=== PATIENT | male | born 1960 | race Caucasian/White ===

== ENCOUNTER 2016-07-25 13:06 | Emergency (ER) | payer BC ==
[~2016-07-25] VITALS: Ht 177.8 cm; Wt 75.2 kg
[~2016-07-25 13:06] MED LIST: FLEXERIL10 MG PO; LIPITOR20 MG PO; MEDROL DOSEPAK4 MG PO; MOTRIN800 MG PO; PERCOCET 5/31 TABLET PO; PRILOSEC OTC20 MG PO; TORADOL10 MG PO; VALIUM2 MG PO; VALIUM5 MG PO
[2016-07-25 13:53] LABS: ADD MIUA? NO; BILIRUBIN NEGATIVE; BLOOD NEGATIVE; COLOR YELLOW ((YELLOW)); GLUCOSE (STRIP) NEGATIVE; KETONES NEGATIVE; LEUKOCYTES NEGATIVE; NITRITE NEGATIVE; PROTEIN (STRIP) NEGATIVE; SPECIFIC GRAVITY 1.012 (1.000-1.030); UROBILINOGEN 0.2 MG/DL (0.2-1.0)
[2016-07-25] MEDS ORDERED: OXYCODONE HCL10 MG PO (14:47)
[2016-07-25] MEDS ORDERED: METHADONE10 MG PO (14:47)
[2016-07-25] MEDS ORDERED: BLOOD PRESSURE PO (15:02)
[2016-07-25 17:18] VITALS: BP 163/102
== END 2016-07-25 17:18 | disposition home or self-care (01) ==
LOC: EME 13:06
PROVIDERS: Physician Assistant
DX: R10.30 Lower abdominal pain, unspecified (principal); F17.200 Nicotine dependence, unspecified, uncomplicated; Z88.8 Allergy status to other drugs, medicaments and biological substances; I10 Essential (primary) hypertension
CPT/HCPCS: 71020; 76870; 81003; 99281; 99284

== ENCOUNTER 2016-10-16 07:07 | Emergency (ER) | payer BC, OTHER ==
[~2016-10-16] VITALS: Ht 172.7 cm; Wt 68.0 kg
[~2016-10-16 07:07] MED LIST changes: +BLOOD PRESSURE PO; +METHADONE10 MG PO; +OXYCODONE HCL10 MG PO
[2016-10-16 09:42] VITALS: BP 142/89
== END 2016-10-16 09:43 | disposition home or self-care (01) ==
LOC: EME 07:07
PROC: 0HQLXZZ Repair Left Lower Leg Skin, External Approach (ICD-10-PCS; principal; 2016-10-16)
DX: S81.812A Laceration without foreign body, left lower leg, initial encounter (principal); Y99.0 Civilian activity done for income or pay; W25.XXXA Contact with sharp glass, initial encounter; F17.200 Nicotine dependence, unspecified, uncomplicated; Z71.6 Tobacco abuse counseling
CPT/HCPCS: 73610; 99281; 99284

== ENCOUNTER 2017-02-27 16:37 | Emergency (ER) | payer BC, OTHER ==
[~2017-02-27] VITALS: Ht 177.8 cm; Wt 61.2 kg
[~2017-02-27 16:37] MED LIST changes: +AMLODIPINE BESY10 MG PO; -BLOOD PRESSURE PO
[2017-02-27 17:46] LABS: HEMATOCRIT 32.6 % (38.0-50.0); MCH 27.6 PG (29.0-34.0); MCHC 32.2 G/DL (30.0-36.0); MCV 85.8 FL (86-99); MEAN PLAT.VOLUME 9.5 uM^3 (9.0-12.4); PLATELET COUNT 340 K/uL (156-360); RBC DIS.WIDTH-CV 14.6 % (11.8-14.6); RBC DIS.WIDTH-SD 45.5 % (39-53)
[2017-02-27 18:00] LABS: CHLORIDE 99 mEq/L (99-109); SODIUM 134 mEq/L (136-147)
[2017-02-27 18:02] LABS: GLUCOSE 91 mg/dL (70-99); POTASSIUM 4.6 mEq/L (3.7-5.4)
[2017-02-27 18:03] LABS: ANION GAP 11 MEQ/L (2-14)
[2017-02-27 18:04] LABS: TOTAL BILIRUBIN 0.6 mg/dL (0.0-1.0)
[2017-02-27 18:06] LABS: ALKALINE PHOSPHATASE 382 IU/L (3-129); GFR ESTIMATE (CALCULATED) 51 mL/min/
[2017-02-27 18:07] LABS: UREA NITROGEN (BUN) 39 mg/dL (9-23)
[2017-02-27 19:50] VITALS: BP 148/92
== END 2017-02-27 19:52 | disposition home or self-care (01) ==
LOC: EME 16:37
PROVIDERS: Emergency Medicine
DX: E87.5 Hyperkalemia (principal); I10 Essential (primary) hypertension; Z87.891 Personal history of nicotine dependence
CPT/HCPCS: 71010; 80053; 85027; 93005; 99281; 99284; J7030

== ENCOUNTER 2017-03-01 12:26 | Inpatient (IN) | payer BC, OTHER ==
[~2017-03-01] VITALS: Ht 177.8 cm; Wt 61.4 kg
[2017-03-01 13:57] LABS: HEMATOCRIT 35.7 % (38.0-50.0); MCH 27.8 PG (29.0-34.0); MCHC 31.7 G/DL (30.0-36.0); MCV 87.9 FL (86-99); MEAN PLAT.VOLUME 10.5 uM^3 (9.0-12.4); PLATELET COUNT 385 K/uL (156-360); RBC DIS.WIDTH-CV 14.7 % (11.8-14.6); RBC DIS.WIDTH-SD 47.1 % (39-53); RED BLOOD COUNT 4.06 M/uL (4.00-5.50); WHITE BLOOD COUNT 8.1 K/uL (4.1-10.2)
[2017-03-01 14:16] LABS: CHLORIDE 98 mEq/L (99-109); POTASSIUM 5.2 mEq/L (3.7-5.4); SODIUM 133 mEq/L (136-147)
[2017-03-01 14:18] LABS: GLUCOSE 81 mg/dL (70-99)
[2017-03-01 14:20] LABS: ANION GAP 10 MEQ/L (2-14)
[2017-03-01 14:21] LABS: TOTAL BILIRUBIN 0.8 mg/dL (0.0-1.0)
[2017-03-01 14:22] LABS: ALKALINE PHOSPHATASE 398 IU/L (3-129); GFR ESTIMATE (CALCULATED) > 59 mL/min/
[2017-03-01 14:23] LABS: UREA NITROGEN (BUN) 25 mg/dL (9-23)
[2017-03-01 14:25] LABS: LIPASE 35 U/L (1.0-51.0)
[2017-03-01 15:43] LABS: ADD MIUA? NO; BILIRUBIN NEGATIVE; BLOOD NEGATIVE; COLOR YELLOW ((YELLOW)); GLUCOSE (STRIP) 50; KETONES NEGATIVE; LEUKOCYTES NEGATIVE; NITRITE NEGATIVE; PROTEIN (STRIP) 30; SPECIFIC GRAVITY 1.014 (1.000-1.030); UCUL ADDED? NO
[2017-03-01 16:56] LABS: INTER. NORMALIZED RATIO 1.1; PROTHROMBIN TIME 12.4 SEC (10.2-12.9)
[2017-03-01 16:59] LABS: PTT 32.7 SEC (25-37)
[2017-03-01] MEDS ORDERED: IBUPROFEN600 MG PO (22:35)
[2017-03-01] MEDS ORDERED: FLONASE16 G1 BOTH NARES (22:35)
[2017-03-01] MEDS ORDERED: NICODERM CQ1 EAC1 TD (22:35)
[2017-03-01 23:44] VITALS: BP 162/97
[2017-03-02 00:49] VITALS: BP 165/97
[2017-03-02 08:00] VITALS: BP 157/92
[2017-03-02 18:16] VITALS: BP 155/93
[2017-03-02 23:32] VITALS: BP 144/85
[2017-03-03 06:55] VITALS: BP 165/90
[2017-03-03 14:18] VITALS: BP 141/81
[2017-03-03 16:35] VITALS: BP 140/88
[2017-03-03 19:29] VITALS: BP 162/90
[2017-03-03 19:46] VITALS: BP 140/90
[2017-03-03 23:47] VITALS: BP 149/91
[2017-03-04 03:35] VITALS: BP 153/92
[2017-03-04 05:36] VITALS: BP 140/88
[2017-03-04 06:34] LABS: INTER. NORMALIZED RATIO 1.2; PROTHROMBIN TIME 14.1 SEC (10.2-12.9)
[2017-03-04 06:36] LABS: PTT 31.9 SEC (25-37)
[2017-03-04 07:10] VITALS: BP 161/93
[2017-03-04 10:15] VITALS: BP 129/84
[2017-03-04 16:19] VITALS: BP 139/82
[2017-03-04 23:26] VITALS: BP 157/85
[2017-03-05 06:51] VITALS: BP 155/94
[2017-03-05 15:16] VITALS: BP 132/79
[2017-03-05 23:35] VITALS: BP 142/82
[2017-03-06 07:45] VITALS: BP 155/89
[2017-03-06] MEDS ORDERED: DOCUSATE SODIU100 MG PO (13:25)
[2017-03-06] MEDS ORDERED: SENNA LAX8.6 MG PO (13:25)
[2017-03-06] MEDS ORDERED: FAMOTIDINE20 MG PO (13:25)
== END 2017-03-06 14:31 | disposition home or self-care (01) | DRG 436 ==
LOC: EME 12:26 → EDOF 20:55 → 5EAST 20:55 → ENRESERV 21:16 → 5EAST 23:22
PROVIDERS: Emergency Medicine; Internal Medicine Pulmonary Disease
PROC: 0FB13ZX Excision of Right Lobe Liver, Percutaneous Approach, Diagnostic (ICD-10-PCS; principal; 2017-03-04)
DX: C22.0 Liver cell carcinoma (principal); C78.02 Secondary malignant neoplasm of left lung; C78.01 Secondary malignant neoplasm of right lung; D63.0 Anemia in neoplastic disease; K72.90 Hepatic failure, unspecified without coma; E87.1 Hypo-osmolality and hyponatremia; R59.0 Localized enlarged lymph nodes; R04.0 Epistaxis; K59.00 Constipation, unspecified; N28.9 Disorder of kidney and ureter, unspecified; B19.20 Unspecified viral hepatitis C without hepatic coma; I10 Essential (primary) hypertension; K21.9 Gastro-esophageal reflux disease without esophagitis; G89.4 Chronic pain syndrome; M19.90 Unspecified osteoarthritis, unspecified site; R63.4 Abnormal weight loss; M47.812 Spondylosis without myelopathy or radiculopathy, cervical region; Z98.1 Arthrodesis status; Z79.891 Long term (current) use of opiate analgesic; Z87.891 Personal history of nicotine dependence; Z80.1 Family history of malignant neoplasm of trachea, bronchus and lung
CPT/HCPCS: 36415; 71010; 71260; 74177; 77012; 80048; 80053; 81003; 81256 90; 82105 90; 83540; 83690; 85025; 85027; 85049; 85610; 85730; 87902 90; 88307; 88313; 88341 TC; 88342 TC; 93005; 99281; 99284; 99285; J1170; J2270; J2405; J3010; J7030; J7042

== ENCOUNTER 2017-03-30 11:58 | Observation (INO) | payer BC, OTHER ==
[~2017-03-30] VITALS: Ht 177.8 cm; Wt 57.2 kg
[~2017-03-30 11:58] MED LIST changes: -AMLODIPINE BESY10 MG PO; +AMLODIPINE BESYL5 MG PO; +DOCUSATE SODIU100 MG PO; +FAMOTIDINE20 MG PO; +FLONASE16 G1 BOTH NARES; +IBUPROFEN600 MG PO; +NICODERM CQ1 EAC1 TD; -OXYCODONE HCL10 MG PO; +OXYCODONE HCL15 MG PO; +SENNA LAX8.6 MG PO
[2017-03-30 13:34] LABS: EOSINOPHIL (%) 0.2 % (0-5); HEMATOCRIT 31.8 % (38.0-50.0); IMMATURE GRANULOCYTE (%) 0.6 % (0.0-0.7); IMMATURE GRANULOCYTE COUNT 0.1 K/uL; INSTRUMENT ABS NEUTROPHIL CT 6.5 K/uL; MCH 26.6 PG (29.0-34.0); MCHC 32.1 G/DL (30.0-36.0); MEAN PLAT.VOLUME 9.2 uM^3 (9.0-12.4); MONOCYTE (%) 5.6 % (3-12); MONOCYTE COUNT 0.5 K/uL (0-0.8); NEUTROPHIL (%) 80.8 % (45-76); NEUTROPHIL COUNT 6.5 K/uL (1.8-6.4); PLATELET COUNT 296 K/uL (156-360); RBC DIS.WIDTH-CV 16.7 % (11.8-14.6); RBC DIS.WIDTH-SD 49.8 % (39-53); RED BLOOD COUNT 3.84 M/uL (4.00-5.50); WHITE BLOOD COUNT 8.1 K/uL (4.1-10.2)
[2017-03-30 13:36] LABS: MCV 82.8 FL (86-99)
[2017-03-30 13:51] LABS: ANION GAP 8 MEQ/L (2-14); CHLORIDE 95 MEQ/L (99-109); MAGNESIUM 1.9 mg/dl (1.3-2.7); POTASSIUM 4.8 MEQ/L (3.7-5.4); SAMPLE HEMOLYSIS CHECK 0; SAMPLE ICTERIC CHECK 0; SAMPLE LIPEMIA CHECK 0; SODIUM 129 MEQ/L (136-147); TOTAL BILIRUBIN 1.1 MG/DL (0.0-1.0)
[2017-03-30 13:57] LABS: ALKALINE PHOSPHATASE 651 IU/L (3-129); GFR ESTIMATE (CALCULATED) > 59 mL/min/ (58.99-99999); GLUCOSE 83 mg/dL (70-99); UREA NITROGEN (BUN) 22 mg/dL (9-23)
[2017-03-30] MEDS ORDERED: DURAGESIC50 MCG TD (18:09)
[2017-03-30] MEDS ORDERED: PRILOSEC OTC20 MG PO (18:09)
[2017-03-30] MEDS ORDERED: MIRALAX255 GM PO (18:09)
[2017-03-30] MEDS ORDERED: PROVENTIL HFA6.7 GM IH (19:26)
[2017-03-30] MEDS ORDERED: LEVAQUIN750 MG PO (19:26)
[2017-03-30 20:09] VITALS: BP 138/92
== END 2017-03-30 20:04 | disposition home or self-care (01) ==
LOC: EME 11:58 → EDOF 18:34 → ENRESERV 18:37 → EDOF 20:04
PROVIDERS: Emergency Medicine
DX: J44.0 Chronic obstructive pulmonary disease with (acute) lower respiratory infection (principal); J44.1 Chronic obstructive pulmonary disease with (acute) exacerbation; J18.9 Pneumonia, unspecified organism; C22.9 Malignant neoplasm of liver, not specified as primary or secondary; C78.00 Secondary malignant neoplasm of unspecified lung; Z87.891 Personal history of nicotine dependence; I10 Essential (primary) hypertension; B19.20 Unspecified viral hepatitis C without hepatic coma; G89.29 Other chronic pain; Z79.891 Long term (current) use of opiate analgesic
CPT/HCPCS: 71275; 80053; 83735; 85025; 93005; G0378; J2270; J7040

== ENCOUNTER 2017-05-04 15:44 | Inpatient (IN) | payer OTHER ==
[~2017-05-04] VITALS: Ht 177.8 cm; Wt 60.5 kg
[~2017-05-04 15:44] MED LIST changes: +DURAGESIC75 MCG TD; +HYDROMET SYRUP480 ML PO; +LEVAQUIN750 MG PO; +MIRALAX255 GM PO; +PROVENTIL HFA6.7 GM IH
[2017-05-04 16:04] LABS: HEMATOCRIT 38.8 % (38.0-50.0); HEMOGLOBIN 12.2 G/DL (12.5-16.6); MCH 25.8 PG (29.0-34.0); MCHC 31.4 G/DL (30.0-36.0); PLATELET COUNT 355 K/uL (156-360); RBC DIS.WIDTH-CV 19.7 % (11.8-14.6); RBC DIS.WIDTH-SD 57.1 % (39-53); RED BLOOD COUNT 4.73 M/uL (4.00-5.50); WHITE BLOOD COUNT 6.3 K/uL (4.1-10.2)
[2017-05-04 16:14] LABS: ALBUMIN 2.4 g/dL (3.2-4.8); CHLORIDE 94 mEq/L (99-109); POTASSIUM 5.5 mEq/L (3.7-5.4); SODIUM 126 mEq/L (136-147)
[2017-05-04 16:16] LABS: GLUCOSE 101 mg/dL (70-99); TOTAL PROTEIN 6.9 g/dL (6.4-8.3)
[2017-05-04 16:18] LABS: TOTAL BILIRUBIN 3.1 mg/dL (0.0-1.0)
[2017-05-04 16:20] LABS: ALKALINE PHOSPHATASE 361 IU/L (3-129); GFR ESTIMATE (CALCULATED) 56 mL/min/ (58.99-99999)
[2017-05-04 16:21] LABS: AST (GOT) 352 IU/L (2-34)
[2017-05-04 16:23] LABS: ALT (GPT) 67 IU/L (3-49); LIPASE 25 U/L (1.0-51.0)
[2017-05-04 16:26] LABS: CREATININE 1.4 mg/dL (0.6-1.3); UREA NITROGEN (BUN) 40 mg/dL (9-23)
[2017-05-04 16:29] LABS: TROP-I INTERPRETATION NEGATIVE; TROPONIN-I 0.02 ng/mL (0.0-0.30)
[2017-05-04] MEDS ORDERED: ALBUTEROL2.5 MG/3 M IH (18:57)
[2017-05-04] MEDS ORDERED: DILAUDID8 MG PO (18:58)
[2017-05-04] MEDS ORDERED: PREDNISONE10 MG PO (19:00)
[2017-05-04] MEDS ORDERED: NEXAVAR200 MG PO (19:27)
[2017-05-04] MEDS ORDERED: MAGIC MOUTH WASH (19:30)
[2017-05-05] VITALS (7 sets, daily range): BP systolic 113–134; BP diastolic 69–87
[2017-05-05 07:35] LABS: HEMATOCRIT 36.1 % (38.0-50.0); HEMOGLOBIN 11.1 G/DL (12.5-16.6); MCH 24.9 PG (29.0-34.0); MCHC 30.7 G/DL (30.0-36.0); MCV 80.9 FL (86-99); PLATELET COUNT 288 K/uL (156-360); RBC DIS.WIDTH-CV 19.4 % (11.8-14.6); RBC DIS.WIDTH-SD 56.4 % (39-53); RED BLOOD COUNT 4.46 M/uL (4.00-5.50)
[2017-05-05 08:00] LABS: CHLORIDE 97 MEQ/L (99-109); CREATININE 1.4 MG/DL (0.6-1.3); GFR ESTIMATE (CALCULATED) 56 mL/min/ (58.99-99999); GLUCOSE 98 mg/dL (70-99); SODIUM 131 MEQ/L (136-147); UREA NITROGEN (BUN) 41 mg/dL (9-23)
[2017-05-05 15:14] LABS: INTER. NORMALIZED RATIO 1.4
[2017-05-05 15:16] LABS: PTT 41.2 SEC (25-37)
[2017-05-06] VITALS (23 sets, daily range): BP systolic 99–127; BP diastolic 70–90
[2017-05-06 06:05] LABS: HEMATOCRIT 34.8 % (38.0-50.0); HEMOGLOBIN 11.1 G/DL (12.5-16.6); MCH 25.8 PG (29.0-34.0); MCHC 31.9 G/DL (30.0-36.0); MCV 80.7 FL (86-99); NRBC (%) 0.3 /100 WBC (0-0); RBC DIS.WIDTH-CV 20.3 % (11.8-14.6); RBC DIS.WIDTH-SD 56.9 % (39-53); RED BLOOD COUNT 4.31 M/uL (4.00-5.50); WHITE BLOOD COUNT 7.1 K/uL (4.1-10.2)
[2017-05-06 06:27] LABS: CHLORIDE 101 MEQ/L (99-109); CREATININE 1.4 MG/DL (0.6-1.3); GFR ESTIMATE (CALCULATED) 56 mL/min/ (58.99-99999); GLUCOSE 77 mg/dL (70-99); POTASSIUM 5.1 MEQ/L (3.7-5.4); SODIUM 133 MEQ/L (136-147); UREA NITROGEN (BUN) 49 mg/dL (9-23)
[2017-05-06 06:55] LABS: ABS NEUTROPHIL COUNT 6.9; ANISOCYTOSIS 2+; BAND NEUTROPHILS 0.9 % (0-8.0); BURR CELLS 2+; EOSINOPHIL ABS CT 0; HEMATOLOGY COMMENT 1 SN; LYMPHOCYTES 1.7 % (15.0-45.0); MACROCYTES 2+; MONOCYTES 0.9 % (0-9.0); PLAT.SUFFICIENCY ADEQUATE; POIKILOCYTOSIS 2+; POLYCHROMASIA 1+; SEG.NEUTROPHILS 96.5 % (46.0-76.0)
[2017-05-06 07:51] LABS: VANCOMYCIN, TROUGH 5.7 MCG/ML (10-20)
[2017-05-06 21:38] LABS: CARBON DIOXIDE (BICARBONATE) 18.5 MEQ/L (20-31)
[2017-05-06 21:43] LABS: INTER. NORMALIZED RATIO 1.3
[2017-05-06 21:44] LABS: ALBUMIN 2.2 g/dL (3.2-4.8); CHLORIDE 103 mEq/L (99-109); POTASSIUM 5.2 mEq/L (3.7-5.4); SODIUM 132 mEq/L (136-147)
[2017-05-06 21:45] LABS: MAGNESIUM 1.9 mg/dL (1.3-2.7)
[2017-05-06 21:46] LABS: PTT 39.6 SEC (25-37)
[2017-05-06 21:47] LABS: GLUCOSE 119 mg/dL (70-99); TOTAL PROTEIN 6.5 g/dL (6.4-8.3)
[2017-05-06 21:50] LABS: ALKALINE PHOSPHATASE 378 IU/L (3-129); PHOSPHORUS 4.5 mg/dL (2.5-4.9)
[2017-05-06 21:51] LABS: CREATININE 1.8 mg/dL (0.6-1.3); GFR ESTIMATE (CALCULATED) 42 mL/min/ (58.99-99999)
[2017-05-06 21:52] LABS: AST (GOT) 342 IU/L (2-34); UREA NITROGEN (BUN) 61 mg/dL (9-23)
[2017-05-06 21:54] LABS: ALT (GPT) 75 IU/L (3-49)
[2017-05-07] VITALS (13 sets, daily range): BP systolic 110–141; BP diastolic 77–98
[2017-05-07 06:02] LABS: HEMATOCRIT 35.3 % (38.0-50.0); HEMOGLOBIN 11.4 G/DL (12.5-16.6); MCHC 32.3 G/DL (30.0-36.0); MCV 80.4 FL (86-99); NRBC (%) 0.2 /100 WBC (0-0); PLATELET COUNT 281 K/uL (156-360); RBC DIS.WIDTH-CV 20.2 % (11.8-14.6); RED BLOOD COUNT 4.39 M/uL (4.00-5.50); WHITE BLOOD COUNT 11.7 K/uL (4.1-10.2)
[2017-05-07 06:15] LABS: CHLORIDE 102 MEQ/L (99-109); MAGNESIUM 2.2 mg/dl (1.3-2.7); POTASSIUM 5.2 MEQ/L (3.7-5.4); SODIUM 131 MEQ/L (136-147); TOTAL BILIRUBIN 2.1 MG/DL (0.0-1.0)
[2017-05-07 06:24] LABS: ALKALINE PHOSPHATASE 347 IU/L (3-129); ALT (GPT) 62 IU/L (3-49); AST (GOT) 276 IU/L (2-34); CREATININE 1.6 MG/DL (0.6-1.3); GFR ESTIMATE (CALCULATED) 48 mL/min/ (58.99-99999); GLUCOSE 105 mg/dL (70-99); PHOSPHORUS 4.1 mg/dL (2.5-4.9); TOTAL PROTEIN 5.9 G/DL (6.4-8.3); UREA NITROGEN (BUN) 62 mg/dL (9-23)
[2017-05-07 06:50] LABS: BASOPHIL (%) 0.3 % (0-1); EOSINOPHIL (%) 0 % (0-5); IMMATURE GRANULOCYTE (%) 1.5 % (0.0-0.7); LYMPHOCYTE (%) 9.8 % (15-42); LYMPHOCYTE COUNT 1.1 K/uL (1.0-2.8); MONOCYTE (%) 2.4 % (3-12); MONOCYTE COUNT 0.3 K/uL (0-0.8); PLAT.SUFFICIENCY ADEQUATE
[2017-05-08 20:20] VITALS: BP 00/00
== END 2017-05-08 20:05 | DRG 871 ==
LOC: EME 15:44 → EDOF 20:48 → 5EAST 20:48 → 4WEST 20:48 → ENRESERV 20:49 → 4EAST 05-05 00:55 → 4WEST 05-06 01:17 → ENRESERV 05-06 01:18 → 4WEST 05-06 01:19 → ENRESERV 05-06 01:19 → 4WEST 05-06 01:21 → ENRESERV 05-07 17:44 → 5EAST 05-07 19:43
PROVIDERS: Emergency Medicine; Family Medicine Sports Medicine; Internal Medicine Hematology & Oncology; Obstetrics & Gynecology
PROC: 5A0945Z Assistance with Respiratory Ventilation, 24-96 Consecutive Hours (ICD-10-PCS; principal; 2017-05-06)
DX: A40.9 Streptococcal sepsis, unspecified (principal); R65.20 Severe sepsis without septic shock; J96.01 Acute respiratory failure with hypoxia; J44.0 Chronic obstructive pulmonary disease with (acute) lower respiratory infection; J13 Pneumonia due to Streptococcus pneumoniae; J20.9 Acute bronchitis, unspecified; J44.1 Chronic obstructive pulmonary disease with (acute) exacerbation; I81 Portal vein thrombosis; I82.220 Acute embolism and thrombosis of inferior vena cava; C22.0 Liver cell carcinoma; C78.00 Secondary malignant neoplasm of unspecified lung; C77.2 Secondary and unspecified malignant neoplasm of intra-abdominal lymph nodes; B19.20 Unspecified viral hepatitis C without hepatic coma; K74.60 Unspecified cirrhosis of liver; E87.2 Acidosis; E86.0 Dehydration; E87.1 Hypo-osmolality and hyponatremia; E87.5 Hyperkalemia; E41 Nutritional marasmus; R64 Cachexia; D64.9 Anemia, unspecified; E78.5 Hyperlipidemia, unspecified; G89.4 Chronic pain syndrome; I10 Essential (primary) hypertension; K21.9 Gastro-esophageal reflux disease without esophagitis; M47.22 Other spondylosis with radiculopathy, cervical region; F32.9 Major depressive disorder, single episode, unspecified; F41.9 Anxiety disorder, unspecified; K29.70 Gastritis, unspecified, without bleeding; Z66 Do not resuscitate; Z51.5 Encounter for palliative care; Z68.1 Body mass index [BMI] 19.9 or less, adult; Z79.891 Long term (current) use of opiate analgesic; Z87.891 Personal history of nicotine dependence
CPT/HCPCS: 71275; 74177; 80048; 80053; 80202; 82140; 82803; 82948; 83605; 83690; 83735; 84100; 84484; 85025; 85027; 85610; 85730; 87040; 87077; 87181; 87502; 87641; 87801; 93005; 94002; 94003; 94640; 94640 76; 94760; 94799; 99202; 99281; 99285; J0456; J0696; J1650; J2060; J2270; J2540; J2543; J2930; J3370; J7030; J7050; J7120; J7512